=== PATIENT | male | born 1950 | race African-American/Black ===

== ENCOUNTER 2017-07-05 13:58 | Inpatient (IN) | payer OTHER ==
--- NOTE | 2017-07-05 20:17 | HP ---
CIWA Score - CIWA Score Nausea/Vomitin (nausea, no vomiting) Muscle Tremors: 4-Moderate,w/Arms Extend Anxiety: 4-Mod. Anxious/Guarded Agitation: 4-Moderately Restless Paroxysmal Sweats: No Perspiration Orientation: 1-Uncertain about Date Tacttile Disturbances: 0-None Auditory Disturbances: 0-None Visual Disturbances: 0-None Headache: 3-Moderate CIWA-Ar Total Score: 18 Admission ROS S - HPI Chief Complaint: Alcohol withdrawal symptoms Allergies/Adverse Reactions: Allergies Allergy/AdvReac Type Severity Reaction Status Date / Time chlorpromazine AdvReac Severe Difficulty Verified 07/05/17 22:11 [From Thorazine] Breathing divalproex sodium AdvReac Severe Rash Verified 07/05/17 22:11 [From Depakote] History of Present Illness: 66 years old male with a long history of alcohol dependence is seeking admission to detox. Patient has been to previous detox and reports insignificant period of sobriety. He has past medical history of anemia, Hep B, Tuberclosis, BPH and depression. Patient states that he is on risperdal injection every 2 weeks. This is yet to be confirmed by nurse. Referral to Psych. for follow up with medication initiated. He reports 2 prior suicidal attempt by hanging in the bathroom. He denies suicidal ideation at this time. Exam Limitations: No Limitations - Ebola screening Have you traveled outside of the country in the last 21 days: No (N) Have you had contact with anyone from an Ebola affected area: No Have you been sick,other than usual withdrawal symptoms: No Do you have a fever: No - Review of Systems Constitutional: Chills, Loss of Appetite, Malaise, Night Sweats, Changes in sleep EENT: reports: Tearing Respiratory: reports: No Symptoms reported Cardiac: reports: No Symptoms Reported GI: reports: Diarrhea (x 2), Nausea, Poor Appetite, Poor Fluid Intake, Abdominal cramping : reports: No Symptoms Reported Musculoskeletal: reports: Back Pain, Muscle Pain, Muscle Weakness Integumentary: reports: Flushing Neuro: reports: Tingling, Tremors Endocrine: reports: No Symptoms Reported Hematology: reports: No Symptoms Reported, Anemia Psychiatric: reports: Agitated, Anxious Other Systems: Reviewed and Negative Patient History - Patient Medical History Hx Anemia: Yes (On Ferrous Sulfate) Hx Asthma: No Hx Chronic Obstructive Pulmonary Disease (COPD): No Hx Cancer: No Hx Cardiac Disorders: No Hx Congestive Heart Failure: No Hx Hypertension: Yes (Not on meds) Hx Hypercholesterolemia: No Hx Pacemaker: No HX Cerebrovascular Accident: No Hx Seizures: No Hx Dementia: No Hx Diabetes: No Hx Gastrointestinal Disorders: No Hx Liver Disease: Yes (Hepatitis B - not on meds) Hx Genitourinary Disorders: Yes (BPH on Flomax) Hx Sexually Transmitted Disorders: No Hx Renal Disease (ESRD): No Hx Thyroid Disease: No Hx Human Immunodeficiency Virus (HIV): No (Negative 2016) Hx Hepatitis C: No Hx Depression: Yes Hx Suicide Attempt: Yes (Reports 2 suicide attempts, last was ; denies suicidal ideation today) Hx Bipolar Disorder: No Hx Schizophrenia: Yes (Respidal) Other Medical History: TUBERCLOSIS - TREATED WITH INH - Patient Surgical History Past Surgical History: Yes Hx Neurologic Surgery: No Hx Cataract Extraction: No Hx Cardiac Surgery: No Hx Lung Surgery: No Hx Abdominal Surgery: No Hx Appendectomy: No Hx Cholecystectomy: No Hx Genitourinary Surgery: No Hx Orthopedic Surgery: No Other Surgical History: Removal of all teeth from gum infection 2014 Anesthesia Reaction: No - PPD History Previous Implant?: Yes (PPD POSITIVE- INH FOR A YEAR) Implanted On Prior R Admission?: No PPD to be Administered?: No - Reproductive History Patient is a Female of Child Bearing Age (11 -55 yrs old): No (MALE) - Smoking Cessation Smoking history: Former smoker Have you smoked in the past 12 months: No Hx Chewing Tobacco Use: No Initiated information on smoking cessation: No - Substance & Tx. History Hx Alcohol Use: Yes Hx Substance Use: Yes Substance Use Type: Cocaine Hx Substance Use Treatment: Yes ([facility]) - Substances Abused Alcohol Route: Oral Frequency: Daily Amount used: MARGE 45 BEER - 6 PACKS Age of first use: 23 Date of Last Use: 07/05/17 Crack Route: Smoking Frequency: 3-6 times per week Amount used: $500 Age of first use: 30 Date of Last Use: 07/04/17 Family Disease History - Family Disease History Family Disease History: Diabetes: Mother (Bipolar disorder - ), Heart Disease: Mother, CA: Grandparent (liver Ca - ), Respiratory: Mother, Other: Mother, Brother (Schizophrenia) Admission Physical Exam [facility] - Vital Signs Vital Signs: Vital Signs - 24 hr 07/05/17 18:33 Temperature 98.3 F Pulse Rate 66 Respiratory 21 Rate Blood Pressure 153/86 - Physical General Appearance: Yes: Moderate Distress, Tremorous, Irritable, Sweating, Anxious HEENTM: Yes: EOMI, Normal Voice, SHERLEY, Other (No upper and lower teeth) Respiratory: Yes: Lungs Clear, Normal Breath Sounds, No Respiratory Distress Neck: Yes: Supple Breast: Yes: Breast Exam Deferred Cardiology: Yes: Regular Rhythm, Regular Rate, S1, S2 Abdominal: Yes: Protuberent Genitourinary: Yes: Within Normal Limits Back: Yes: Normal Inspection Extremities: Yes: Tremors Neurological: Yes: Alert, Normal Mood/Affect Integumentary: Yes: Dry Lymphatic: Yes: Within Normal Limits - Diagnostic (1) Alcohol dependence with uncomplicated withdrawal Current Visit: Yes Status: Chronic (2) Anemia Current Visit: Yes Status: Chronic Qualifiers: Anemia type: unspecified type Qualified Code(s): D64.9 - Anemia, unspecified (3) Hypertension Current Visit: Yes Status: Chronic Qualifiers: Hypertension type: essential hypertension Qualified Code(s): I10 - Essential (primary) hypertension (4) BPH (benign prostatic hyperplasia) Current Visit: Yes Status: Chronic Qualifiers: Lower urinary tract symptom detail: unspecified (5) Depression Current Visit: Yes Status: Chronic Cleared for Admission [facility] - Detox or Rehab [facility] Level of Care: Medically Managed Detox Regimen/Protocol: Librium [facility] Breath Alcohol Content Breath Alcohol Content: 0 Urine Drug Screen - Results Drug Screen Negative: No Urine Drug Screen Results: CARLEEN-Cocaine
[2017-07-05] MEDS ORDERED: ACETAMINOPHEN 325 MG TABLET (FP) PO PRN (20:52)
[2017-07-05] MEDS ORDERED: guaiFENesin/D-METHORPHAN HB 10 ML UNIT-DOSE CUPS PO PRN (20:52)
[2017-07-05] MEDS ORDERED: MENTHOL/PHENOL 1 EACH UD MM PRN (20:52)
[2017-07-05] MEDS ORDERED: MAGNESIUM CITRATE 300 ML BOTTLE PO PRN (20:52)
[2017-07-05] MEDS ORDERED: MAGNESIUM HYDROX 2400MG/30ML ORAL SUSPENSION 30 ML CUP PO PRN (20:52)
[2017-07-05] MEDS ORDERED: LOPERAMIDE HCL 2 MG CAPSULE PO PRN (20:52)
[2017-07-05] MEDS ORDERED: chlordiazePOXIDE HCL 25 MG CAPSULE PO PRN (20:52)
[2017-07-05] MEDS ORDERED: P-EPHED 60MG/TRIPROLIDI 2.5MG TABLET PO PRN (20:52)
[2017-07-05] MEDS ORDERED: MAG HYDROX/AL HYDROX/SIMETH 30 ML UNIT-DOSE CUP PO PRN (20:52)
[2017-07-06] MEDS: chlordiazePOXIDE HCL 25 MG CAPSULE PO SCH ×5 (00:02→23:45)
[2017-07-06] MEDS: THIAMINE HCL 100 MG TABLET (FP) PO SCH ×2 (00:02→23:45)
[2017-07-06 02:20] LABS: URINE APPEARANCE CLEAR; URINE BILIRUBIN NEGATIVE (NEGATIVE); URINE BLOOD NEGATIVE (NEGATIVE); URINE COLOR YELLOW; URINE GLUCOSE (UA) NEGATIVE (NEGATIVE); URINE KETONE NEGATIVE (NEGATIVE); URINE LEUK ESTERASE TRACE (NEGATIVE); URINE NITRITE NEGATIVE (NEGATIVE); URINE UROBILINOGEN NEGATIVE mg/dL (0.2-1.0)
[2017-07-06 02:35] LABS: URINE PROTEIN 1+ (NEGATIVE)
[2017-07-06 02:38] LABS: EPI CELLS RARE /HPF (FEW); URINE MUCUS FEW
[2017-07-06 11:06] LABS: HEMATOCRIT 36.5 % (35.4-49); HEMOGLOBIN 12.1 GM/dL (11.7-16.9); MCHC 33.2 g/dl (32.0-35.9); MEAN CELL VOLUME 99.3 fl (80-96); MEAN PLT VOLUME 9.2 fl (7.5-11.1); PLATELET COUNT 252 K/MM3 (134-434); RBC 3.68 M/mm3 (4.00-5.60); RDW 15.8 % (11.9-15.9); WHITE BLOOD COUNT 4.3 K/mm3 (4.0-10.0)
[2017-07-06 11:17] LABS: ALBUMIN 3.2 g/dl (3.4-5.0); ANION GAP 10 (8-16); BLOOD UREA NITROGEN 16 mg/dL (7-18); CALCIUM 8.5 mg/dL (8.5-10.1); CHLORIDE 107 mmol/L (98-107); CO2 27 mmol/L (21-32); SODIUM 144 mmol/L (136-145)
[2017-07-06 11:22] LABS: ALK PHOS 71 U/L (45-117); BILIRUBIN,TOTAL 0.3 mg/dL (0.2-1.0); CREATININE 0.9 mg/dL (0.7-1.3); GLUCOSE,RANDOM 108 mg/dL (74-106); SGOT/AST 20 U/L (15-37); SGPT/ALT 24 U/L (12-78); TOT PROT 6.9 g/dl (6.4-8.2)
[2017-07-06] MEDS: FERROUS SO4 325 MG TABLET (FP) PO SCH (11:42)
[2017-07-06] MEDS: PRENATAL VITAMINS W/ FOLIC ACID TABLET (FP) PO SCH (11:43)
--- NOTE | 2017-07-06 12:02 | PN ---
S CIWA - CIWA Score Nausea/Vomitin Muscle Tremors: 3 Anxiety: 3 Agitation: 3 Paroxysmal Sweats: 1-Minimal Palms Moist Orientation: 0-Oriented Tacttile Disturbances: 1-Very Mild Itch/Numbness Auditory Disturbances: 1-Very Mild Visual Disturbances: 0-None Headache: 1-Very Mild CIWA-Ar Total Score: 16 BHS Progress Note (SOAP) Subjective: ALERT,IRRITABLE,ANXIOUS,INTERRUPTED SLEEP,TREMOR Objective: 07/06/17 11:59 Vital Signs Temperature 97.5 F L 07/06/17 11:30 Pulse Rate 53 L 07/06/17 11:30 Respiratory Rate 18 07/06/17 11:30 Blood Pressure 108/72 07/06/17 11:30 O2 Sat by Pulse Oximetry (%) EKG SINUS BRADYCARDIA WITH APC NO CHEST PAIN,NO SOB,NO DIZZINESS 07/06/17 12:00 Laboratory Last Values WBC 4.3 K/mm3 (4.0-10.0) 07/06/17 07:50 RBC 3.68 M/mm3 (4.00-5.60) L 07/06/17 07:50 Hgb 12.1 GM/dL (11.7-16.9) 07/06/17 07:50 Hct 36.5 % (35.4-49) 07/06/17 07:50 MCV 99.3 fl (80-96) H 07/06/17 07:50 MCH 33.0 pg (25.7-33.7) 07/06/17 07:50 MCHC 33.2 g/dl (32.0-35.9) 07/06/17 07:50 RDW 15.8 % (11.9-15.9) 07/06/17 07:50 Plt Count 252 K/MM3 (134-434) 07/06/17 07:50 MPV 9.2 fl (7.5-11.1) 07/06/17 07:50 Sodium 144 mmol/L (136-145) 07/06/17 07:50 Potassium 4.0 mmol/L (3.5-5.1) 07/06/17 07:50 Chloride 107 mmol/L (98-107) 07/06/17 07:50 Carbon Dioxide 27 mmol/L (21-32) 07/06/17 07:50 Anion Gap 10 (8-16) 07/06/17 07:50 BUN 16 mg/dL (7-18) 07/06/17 07:50 Creatinine 0.9 mg/dL (0.7-1.3) 07/06/17 07:50 Creat Clearance w eGFR > 60 (>60) 07/06/17 07:50 Random Glucose 108 mg/dL (74-106) H 07/06/17 07:50 Calcium 8.5 mg/dL (8.5-10.1) 07/06/17 07:50 Total Bilirubin 0.3 mg/dL (0.2-1.0) 07/06/17 07:50 AST 20 U/L (15-37) 07/06/17 07:50 ALT 24 U/L (12-78) 07/06/17 07:50 Alkaline Phosphatase 71 U/L (45-117) 07/06/17 07:50 Total Protein 6.9 g/dl (6.4-8.2) 07/06/17 07:50 Albumin 3.2 g/dl (3.4-5.0) L 07/06/17 07:50 Urine Color Yellow 07/05/17 22:06 Urine Appearance Clear 07/05/17 22:06 Urine pH 6.0 (5.0-8.0) 07/05/17 22:06 Ur Specific [place] 1.023 (1.001-1.035) 07/05/17 22:06 Urine Protein 1+ (NEGATIVE) H 07/05/17 22:06 Urine Glucose (UA) Negative (NEGATIVE) 07/05/17 22:06 Urine Ketones Negative (NEGATIVE) 07/05/17 22:06 Urine Blood Negative (NEGATIVE) 07/05/17 22:06 Urine Nitrite Negative (NEGATIVE) 07/05/17 22:06 Urine Bilirubin Negative (NEGATIVE) 07/05/17 22:06 Urine Urobilinogen Negative mg/dL (0.2-1.0) 07/05/17 22:06 Ur Leukocyte Esterase Trace (NEGATIVE) 07/05/17 22:06 Urine WBC (Auto) 14 /hpf (3-5) 07/05/17 22:06 Urine RBC (Auto) 3 /hpf (0-3) 07/05/17 22:06 Ur Epithelial Cells Rare /HPF (FEW) 07/05/17 22:06 Urine Mucus Few 07/05/17 22:06 Assessment: 07/06/17 12:00 WITHDRAWAL SYMPTOM Plan: CONTINUE DETOX,REPEAT UA
--- NOTE | 2017-07-06 15:51 | CONSULT ---
<Farrukh Altamirano - Last Filed: 07/06/17 16:09> [facility] Psychiatric Consult - Data Date of interview: 07/06/17 Admission source: [facility] Identifying data: First admission to [facility] for this 66 y/o AA male seeking detox treatment on for alcohol and cocaine (crack) dependence.Patient is single without children,domiciled,unemployed and supported on SSI benefits. Substance Abuse History: Confirmed by patient in this interview.Smoking history : Former smoker. Have you smoked in the past 12 months: No. Hx Chewing Tobacco Use: No. Initiated information on smoking cessation: No. - Substance & Tx. History. Hx Alcohol Use: Yes. Hx Substance Use: Yes. Substance Use Type : Cocaine. Hx Substance Use Treatment: Yes ([facility]). - Substances Abused. Alcohol. Route: Oral. Frequency: Daily. Amount used: MARGE 45 BEER - 6 PACKS. Age of first use: 23. Date of Last Use: 07/05/17. Crack. Route: Smoking. Frequency: 3-6 times per week. Amount used: $500. Age of first use: 30. Date of Last Use: 07/04/17 Medical History: Hepatitis B,hypertension,anemia,benign prostatic hyperplasia, obesity and a history on treatment for tuberculosis (INH for one year). Psychiatric History: Discharged,last week,from the psychiatric inpatient service at [facility].Known to [facility] and other facilities.Diagnosed with Schizophrenia.Mr Bella reports current OPD follow[facility]up at [facility].Maintained on risperdal ( injection).Dose unknown and date of last injection remains uncertain (two weeks ago as per self-report).Patient is not a totally reliable historian.He offers a history of suicide attempts (via hanging).As recently as TWO WEEKS AGO (reason of his admission to [facility]). Physical/Sexual Abuse/Trauma History: Not discussed in this interview.Patient declines. Additional Comment: Urine Drug Screen Results: CARLEEN-Cocaine.Noted. Mental Status Exam - Mental Status Exam Alert and Oriented to: Time, Place, Person Cognitive Function: Grossly Intact Patient Appearance: Disheveled (obese,edentulous) Mood: Withdrawn, Irritable Affect: Mood Congruent Patient Behavior: Fatigued, Guarded, Cooperative (marginally cooperative) Speech Pattern: Clear Voice Loudness: Normal Thought Process: Goal Oriented Thought Disorder: Bizarre Hallucinations: Denies Suicidal Ideation: Denies Homicidal Ideation: Denies Insight/Judgement: Poor Sleep: Poorly, Difficulty falling asleep Appetite: Good Muscle strength/Tone: Normal Gait/Station: Normal Psychiatric Findings - Problem List ([place] 1, 2,3) (1) Alcohol dependence with uncomplicated withdrawal Current Visit: Yes Status: Acute (2) Cocaine dependence Current Visit: Yes Status: Acute (3) Schizophrenia Current Visit: Yes Status: Chronic (4) Insomnia Current Visit: Yes Status: Acute - Initial Treatment Plan Initial Treatment Plan: No records for review.Psychoeducation.Sleep hygiene.Detoxification in progress.Contact [facility] for information (dose of IM risperdal and date of last injection).Patient is encouraged to attend groups and activities.Observe progress. <Bunny Oh - Last Filed: 07/09/17 15:08> Psychiatric Findings - Problem List ([place] 1, 2,3) (1) Alcohol dependence Current Visit: Yes Status: Acute (2) Cocaine dependence Current Visit: Yes Status: Acute (3) Schizophrenia Current Visit: Yes Status: Chronic
[2017-07-07] MEDS: chlordiazePOXIDE HCL 25 MG CAPSULE PO SCH ×3 (06:12→17:56)
[2017-07-07] MEDS: TAMSULOSIN HCL 0.4 MG CAP.ER.24H (FP) PO SCH (10:28)
[2017-07-07] MEDS: FERROUS SO4 325 MG TABLET (FP) PO SCH (10:28)
[2017-07-07] MEDS: PRENATAL VITAMINS W/ FOLIC ACID TABLET (FP) PO SCH (10:28)
--- NOTE | 2017-07-07 12:16 | PN ---
S CIWA - CIWA Score Nausea/Vomitin-Mild Nausea/No Vomiting Muscle Tremors: 4-Moderate,w/Arms Extend Anxiety: 3 Agitation: 3 Paroxysmal Sweats: 1-Minimal Palms Moist Orientation: 0-Oriented Tacttile Disturbances: 0-None Auditory Disturbances: 0-None Visual Disturbances: 0-None Headache: 0-None Present CIWA-Ar Total Score: 12 BHS Progress Note (SOAP) Subjective: sweat tremor restlessness anxiety Objective: 07/07/17 12:15 Vital Signs Temperature 97.9 F 07/07/17 10:31 Pulse Rate 52 L 07/07/17 10:31 Respiratory Rate 18 07/07/17 10:31 Blood Pressure 126/79 07/07/17 10:31 O2 Sat by Pulse Oximetry (%) Laboratory Last Values WBC 4.3 K/mm3 (4.0-10.0) 07/06/17 07:50 RBC 3.68 M/mm3 (4.00-5.60) L 07/06/17 07:50 Hgb 12.1 GM/dL (11.7-16.9) 07/06/17 07:50 Hct 36.5 % (35.4-49) 07/06/17 07:50 MCV 99.3 fl (80-96) H 07/06/17 07:50 MCH 33.0 pg (25.7-33.7) 07/06/17 07:50 MCHC 33.2 g/dl (32.0-35.9) 07/06/17 07:50 RDW 15.8 % (11.9-15.9) 07/06/17 07:50 Plt Count 252 K/MM3 (134-434) 07/06/17 07:50 MPV 9.2 fl (7.5-11.1) 07/06/17 07:50 Sodium 144 mmol/L (136-145) 07/06/17 07:50 Potassium 4.0 mmol/L (3.5-5.1) 07/06/17 07:50 Chloride 107 mmol/L (98-107) 07/06/17 07:50 Carbon Dioxide 27 mmol/L (21-32) 07/06/17 07:50 Anion Gap 10 (8-16) 07/06/17 07:50 BUN 16 mg/dL (7-18) 07/06/17 07:50 Creatinine 0.9 mg/dL (0.7-1.3) 07/06/17 07:50 Creat Clearance w eGFR > 60 (>60) 07/06/17 07:50 Random Glucose 108 mg/dL (74-106) H 07/06/17 07:50 Calcium 8.5 mg/dL (8.5-10.1) 07/06/17 07:50 Total Bilirubin 0.3 mg/dL (0.2-1.0) 07/06/17 07:50 AST 20 U/L (15-37) 07/06/17 07:50 ALT 24 U/L (12-78) 07/06/17 07:50 Alkaline Phosphatase 71 U/L (45-117) 07/06/17 07:50 Total Protein 6.9 g/dl (6.4-8.2) 07/06/17 07:50 Albumin 3.2 g/dl (3.4-5.0) L 07/06/17 07:50 Urine Color Yellow 07/05/17 22:06 Urine Appearance Clear 07/05/17 22:06 Urine pH 6.0 (5.0-8.0) 07/05/17 22:06 Ur Specific [place] 1.023 (1.001-1.035) 07/05/17 22:06 Urine Protein 1+ (NEGATIVE) H 07/05/17 22:06 Urine Glucose (UA) Negative (NEGATIVE) 07/05/17 22:06 Urine Ketones Negative (NEGATIVE) 07/05/17 22:06 Urine Blood Negative (NEGATIVE) 07/05/17 22:06 Urine Nitrite Negative (NEGATIVE) 07/05/17 22:06 Urine Bilirubin Negative (NEGATIVE) 07/05/17 22:06 Urine Urobilinogen Negative mg/dL (0.2-1.0) 07/05/17 22:06 Ur Leukocyte Esterase Trace (NEGATIVE) 07/05/17 22:06 Urine WBC (Auto) 14 /hpf (3-5) 07/05/17 22:06 Urine RBC (Auto) 3 /hpf (0-3) 07/05/17 22:06 Ur Epithelial Cells Rare /HPF (FEW) 07/05/17 22:06 Urine Mucus Few 07/05/17 22:06 lab noted Assessment: 07/07/17 12:16 withdrawal sx Plan: continue detox
--- NOTE | 2017-07-07 14:30 | EKG ---
Test Reason : Blood Pressure : / mmHG Vent. Rate : 058 BPM Atrial Rate : 058 BPM P-R Int : 206 ms QRS Dur : 112 ms QT Int : 430 ms P-R-T Axes : 081 -28 011 degrees QTc Int : 422 ms SINUS BRADYCARDIA WITH BLOCKED PREMATURE ATRIAL COMPLEXES OTHERWISE NORMAL ECG NO PREVIOUS ECGS AVAILABLE Confirmed by MD GEOVANI, TERELL ([id number]) on 07/07/2017 2:30:09 PM Referred By: Confirmed By:TERELL OLIVO MD
[2017-07-07] MEDS: chlordiazePOXIDE 5 MG CAPSULE PO SCH (22:59)
[2017-07-07] MEDS: THIAMINE HCL 100 MG TABLET (FP) PO SCH (22:59)
[2017-07-08 01:11] LABS: URINE APPEARANCE SLCLOUDY; URINE BILIRUBIN NEGATIVE (NEGATIVE); URINE BLOOD NEGATIVE (NEGATIVE); URINE COLOR YELLOW; URINE GLUCOSE (UA) NEGATIVE (NEGATIVE); URINE KETONE NEGATIVE (NEGATIVE); URINE NITRITE NEGATIVE (NEGATIVE); URINE PROTEIN NEGATIVE (NEGATIVE); URINE UROBILINOGEN NEGATIVE mg/dL (0.2-1.0)
[2017-07-08 01:13] LABS: URINE LEUK ESTERASE 2+ (NEGATIVE)
[2017-07-08 01:17] LABS: EPI CELLS FEW /HPF (FEW); URINE BACTERIA RARE /hpf (NONE SEEN); URINE MUCUS MODERATE
[2017-07-08] MEDS: chlordiazePOXIDE 5 MG CAPSULE PO SCH ×3 (06:10→17:48)
[2017-07-08] MEDS: TAMSULOSIN HCL 0.4 MG CAP.ER.24H (FP) PO SCH (10:45)
[2017-07-08] MEDS: FERROUS SO4 325 MG TABLET (FP) PO SCH (10:45)
[2017-07-08] MEDS: PRENATAL VITAMINS W/ FOLIC ACID TABLET (FP) PO SCH (10:45)
--- NOTE | 2017-07-08 11:22 | PN ---
S Progress Note (SOAP) Subjective: ALERT,IRRITABLE,ANXIOUS,INTERRUPTED SLEEP Objective: 07/08/17 11:21 Vital Signs Temperature 96.8 F L 07/08/17 10:00 Pulse Rate 54 L 07/08/17 10:00 Respiratory Rate 20 07/08/17 10:00 Blood Pressure 162/83 07/08/17 10:00 O2 Sat by Pulse Oximetry (%) Assessment: 07/08/17 11:22 WITHDRAWAL SYMPTOM Plan: CONTINUE DETOX
[2017-07-08] MEDS: chlordiazePOXIDE HCL 10 MG CAPSULE PO SCH (22:58)
[2017-07-08] MEDS: THIAMINE HCL 100 MG TABLET (FP) PO SCH (22:59)
[2017-07-09] MEDS: chlordiazePOXIDE HCL 10 MG CAPSULE PO SCH ×3 (05:17→18:36)
[2017-07-09] MEDS ORDERED: cloNIDine HCL 0.1 MG TABLET PO ONE (06:55)
[2017-07-09] MEDS: PRENATAL VITAMINS W/ FOLIC ACID TABLET (FP) PO SCH (10:57)
[2017-07-09] MEDS: TAMSULOSIN HCL 0.4 MG CAP.ER.24H (FP) PO SCH (10:58)
[2017-07-09] MEDS: FERROUS SO4 325 MG TABLET (FP) PO SCH (10:58)
--- NOTE | 2017-07-09 12:04 | DS ---
[facility] Detox Discharge Summary Admission Date: 07/05/17 Discharge Date: 07/09/17 - History Present History: Alcohol Dependence Additional Comments: TRANSFER TO REHAB [facility] FOR FURTHER LEVEL OF CARE Pertinent Past History: ANEMIA HYPERTENSION BPH DEPRESSION - Physical Exam Results Vital Signs: Vital Signs Temperature 97.0 F L 07/09/17 06:00 Pulse Rate 50 L 07/09/17 06:00 Respiratory Rate 18 07/09/17 06:00 Blood Pressure 148/97 07/09/17 06:00 O2 Sat by Pulse Oximetry (%) Pertinent Admission Physical Exam Findings: WITHDRAWAL SIGNS AND SYMPTOM - Treatment Hospital Course: Detox Protocol Followed, Detoxed Safely, Responded well, Discharged Condition Good Patient has Accepted a Rehab Referral to: [facility] - Medication Discharge Medications: Ambulatory Orders Ferrous Sulfate [Iron] 325 mg PO DAILY 07/05/17 Tamsulosin HCl [Flomax -] 0.4 mg PO DAILY #14 cap.er.24h 07/07/17 - Diagnosis (1) Alcohol dependence with uncomplicated withdrawal Current Visit: Yes Status: Acute (2) Anemia Current Visit: Yes Status: Chronic Qualifiers: Anemia type: unspecified type Qualified Code(s): D64.9 - Anemia, unspecified (3) BPH (benign prostatic hyperplasia) Current Visit: Yes Status: Chronic Qualifiers: Lower urinary tract symptom detail: unspecified (4) Depression Current Visit: Yes Status: Chronic (5) Hypertension Current Visit: Yes Status: Chronic Qualifiers: Hypertension type: essential hypertension Qualified Code(s): I10 - Essential (primary) hypertension - AMA Did Patient Leave Against Medical Advice: No
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
[2017-07-09 14:59] VITALS: BMI 43.4
--- NOTE | 2017-07-09 15:44 | HP ---
[facility] Rehab Assess/Revision - Admission History Admitted to Rehab from: [facility] Date of Admission to Rehab: 07/09/2017 - Vital signs Vital Signs: Vital Signs Period Temp Pulse Resp BP Sys/Trevino Pulse Ox Last 24 Hr 97.0 F-98.4 F 50-60 18-20 131-148/72-97 - Findings Detox History & Physical reviewed: Yes Concur with findings: Yes Inpatient Rehab Admission - Initial Determination Are CD services needed?: Yes Free of communicable disease: Yes - Rehab Admission Criteria Comorbidities: Yes Patient is meeting Inpatient Rehab admission criteria:: Yes
[2017-07-09] MEDS ORDERED: traZODone HCL 50 MG TABLET (FP) PO ONE (19:14)
--- NOTE | 2017-07-09 19:34 | PN ---
[facility] Progress Note Note: Called by nursing staff to report that patient wanted to leave and said he did not care about his life. Grinding Wheel Facer asked to talk to patient. Patient was asked about what he meant by not caring about his life. He told typewriter assembly and parts inspector that he meant exactly he said. Grinding Wheel Facer asked him if he meant that he wanted to kill himself. He asked typewriter assembly and parts inspector what would he do if it was what he meant. Grinding Wheel Facer asked patient to get nursing staff on the phone. Nursing staff was instructed to place patient on 1:1 and if patient should present to be a problem on the unit to call 911 in order to refer him to ED for evaluation Patient was transferred to the unit this afternoon from [facility] for inpatient rehabilitation. Reportedly he has history of Schizophrenia since 1975 with multiple psychiatric inpatient hospitalizations to various facilities including [facility], [facility], [facility] [facility] and [facility]. He reported recent hospitalization 2 weeks ago for suicidal attempt by trying to jump out of a window. Reportedly he had a previous suicidal attempt by trying to hang himself in the past. His psychiatric care is provided by [facility] in [facility] and he is prescribed Risperdal Consta(dose & last administered unknown)
[2017-07-09] MEDS: THIAMINE HCL 100 MG TABLET (FP) PO SCH (21:24)
[2017-07-10] MEDS: TAMSULOSIN HCL 0.4 MG CAP.ER.24H (FP) PO SCH (10:35)
[2017-07-10] MEDS: FERROUS SO4 325 MG TABLET (FP) PO SCH (10:35)
[2017-07-10] MEDS: PRENATAL VITAMINS W/ FOLIC ACID TABLET (FP) PO SCH (10:35)
[2017-07-10] MEDS ORDERED: RISPERIDONE MICROSPHERES 25 MG/2 ML VIAL IM ONE (11:51)
[2017-07-10] MEDS ORDERED: QUEtiapine FUMARATE 50 MG TABLET PO PRN (13:34)
[2017-07-10] MEDS: LITHIUM CARBONATE 300 MG CAPSULE (FP) PO SCH ×2 (14:42→21:19)
[2017-07-10] MEDS: QUEtiapine FUMARATE 200 MG TABLET PO SCH (21:19)
[2017-07-10] MEDS: THIAMINE HCL 100 MG TABLET (FP) PO SCH (21:19)
[2017-07-10] MEDS: IBUPROFEN 400 MG TABLET (FP) PO PRN (21:20)
--- NOTE | 2017-07-11 09:39 | PN ---
Psychiatric Progress Note Vital Signs: Vital Signs Period Temp Pulse Resp BP Sys/Trevino Pulse Ox Last 24 Hr 97.7 F 58 18-20 149/81 Date of Session: 07/11/17 Chief Complaint:: Follow up 1:1 observation HPI: Patient addressing Alcohol and Cocaine Dependence, Schizophrenia, Substance -Induced Mood Disorder and Substance-induced Sleep Disorder ROS: Anemia, HTN, Hep B, BPH, PPD+ treated Current Medications: Active Medications Generic Name Dose Route Start Last Admin Trade Name Freq PRN Reason Stop Dose Admin Acetaminophen 650 mg 07/05/17 20:52 Tylenol - PO Q4H PRN FEVER Al Hydroxide/Mg Hydroxide 30 ml 07/05/17 20:52 Mylanta Oral Suspension - PO Q6H PRN DYSPEPSIA Eucalyptus/Menthol/Phenol/Sorbitol 1 each 07/05/17 20:52 Cepastat Lozenge - MM Q4H PRN SORE THROAT Ferrous Sulfate 325 mg 07/06/17 10:00 07/10/17 10:35 Feosol - PO 325 mg DAILY ALEYDA Administration Guaifenesin 10 ml 07/05/17 20:52 Robitussin Dm - PO Q6H PRN COUGH Ibuprofen 400 mg 07/05/17 20:52 07/10/17 21:20 Motrin - PO 400 mg Q6H PRN Administration PAIN LEVEL 4-6 [place] Carbonate 600 mg 07/10/17 14:05 07/10/17 21:19 Eskalith - PO 600 mg BID ALEYDA Administration Loperamide HCl 4 mg 07/05/17 20:52 Imodium - PO Q6H PRN DIARRHEA Magnesium Citrate 300 ml 07/05/17 20:52 Citroma - PO Q48H PRN CONSTIPATION Magnesium Hydroxide 30 ml 07/05/17 20:52 Milk Of Magnesia - PO DAILY PRN CONSTIPATION Multivit/Folic Acid/Iron 1 tab 07/06/17 10:00 07/10/17 10:35 Vitamins (Sjr) - PO 1 tab DAILY ALEYDA Administration Pseudoephedrine/Triprolidine 1 combo 07/05/17 20:52 Actifed - PO TID PRN NASAL CONGESTION Quetiapine Fumarate 200 mg 07/10/17 22:00 07/10/17 21:19 Seroquel - PO 200 mg HS ALEYDA Administration Quetiapine Fumarate 50 mg 07/10/17 13:34 Seroquel - PO Q6H PRN ANXIETY Tamsulosin HCl 0.4 mg 07/07/17 08:30 07/10/17 10:35 Flomax - PO 0.4 mg DAILY@0830 ALEYDA Administration Thiamine HCl 100 mg 07/05/17 22:00 07/10/17 21:19 Vitamin B1 - PO 100 mg HS LAEYDA Administration Current Side Effect: No Lab tests ordered: Yes ([place] serum level) Lab tests reviewed: Yes (CBC: RBC 3.68L, MCV 99.3H; Chemistry: random glucose 108H) Provider note:: Patient seen this morning at bedside. Reports that he slept well last night.However, he reports being drowsy and sleepy and he looks sedated. continues to report not feeling suicidal. He is currently on [place] 600 mg po BID, Seroquel 200 mg po HS and Seroquel 50 mg po Q 6hrs prn Total face to face time:: 25 Mental Status Exam - Mental Status Exam Alert and Oriented to: Time, Place, Person Cognitive Function: Fair Patient Appearance: Well Groomed Mood: Hopeful, Euthymic Affect: Appropriate Patient Behavior: Sedated, Cooperative Speech Pattern: Clear Voice Loudness: Normal Thought Process: Intact, Goal Oriented Thought Disorder: Not Present Hallucinations: Denies Suicidal Ideation: Denies Homicidal Ideation: Denies Insight/Judgement: Fair Sleep: Well Appetite: Good Muscle strength/Tone: Normal Gait/Station: Normal Psychiatric Treatment Plan - Problem List (7) Anemia Qualifiers: Anemia type: unspecified type Qualified Code(s): D64.9 - Anemia, unspecified (8) BPH (benign prostatic hyperplasia) Qualifiers: Lower urinary tract symptom detail: unspecified (9) Hypertension Qualifiers: Hypertension type: essential hypertension Qualified Code(s): I10 - Essential (primary) hypertension (11) PPD positive, treated Initial treatment plan: 1) [place] 1:1 observation as patient is no longer reported SI. 2) Monitor progress
[2017-07-11] MEDS: TAMSULOSIN HCL 0.4 MG CAP.ER.24H (FP) PO SCH (10:32)
[2017-07-11] MEDS: LITHIUM CARBONATE 300 MG CAPSULE (FP) PO SCH ×2 (10:32→21:54)
[2017-07-11] MEDS: FERROUS SO4 325 MG TABLET (FP) PO SCH (10:32)
[2017-07-11] MEDS: PRENATAL VITAMINS W/ FOLIC ACID TABLET (FP) PO SCH (10:32)
[2017-07-11] MEDS: QUEtiapine FUMARATE 200 MG TABLET PO SCH (21:54)
[2017-07-11] MEDS: THIAMINE HCL 100 MG TABLET (FP) PO SCH (21:54)
[2017-07-12 07:17] VITALS: BP 141/83; PULSE 50; TEMP 97.8
[2017-07-12] MEDS: PRENATAL VITAMINS W/ FOLIC ACID TABLET (FP) PO SCH (09:58)
[2017-07-12] MEDS: TAMSULOSIN HCL 0.4 MG CAP.ER.24H (FP) PO SCH (09:58)
[2017-07-12] MEDS: LITHIUM CARBONATE 300 MG CAPSULE (FP) PO SCH ×2 (09:58→21:35)
[2017-07-12] MEDS: FERROUS SO4 325 MG TABLET (FP) PO SCH (12:56)
[2017-07-12] MEDS: THIAMINE HCL 100 MG TABLET (FP) PO SCH (21:35)
[2017-07-12] MEDS: QUEtiapine FUMARATE 200 MG TABLET PO SCH (21:35)
[2017-07-13] MEDS: TAMSULOSIN HCL 0.4 MG CAP.ER.24H (FP) PO SCH (07:53)
[2017-07-13] MEDS: FERROUS SO4 325 MG TABLET (FP) PO SCH (12:32)
[2017-07-13] MEDS: LITHIUM CARBONATE 300 MG CAPSULE (FP) PO SCH (12:32)
[2017-07-13] MEDS: PRENATAL VITAMINS W/ FOLIC ACID TABLET (FP) PO SCH (12:32)
[2017-07-13] MEDS: IBUPROFEN 400 MG TABLET (FP) PO PRN (13:40)
--- NOTE | 2017-07-13 14:32 | PN ---
[facility] Progress Note Note: Patient reports buildup of ear wax in left ear, which is is causing his his hearing to be diminished. Patient reports history of using coffee stirrers to clean ear himself. Visual inspection of Left ear with otoscope reveals significant earwax buildup. Debrox drops ordered. Patient advised to NOT use any objects to be placed in ears to clean ears and to follow-up with [facility] at [facility]) after discharge from Rehab for further medical evaluation. Will continue to monitor over the new few days for effect. Krista Gu NP
[2017-07-13] MEDS ORDERED: CARBAMIDE PEROXIDE 6.5% OTIC 15 ML BOTTLE AS SCH (22:00)
== END 2017-07-13 19:15 | disposition left against medical advice (07) | DRG 894 ==
LOC: YASAS 13:58 → Y6N 19:58 → Y3W 07-09 12:54
PROVIDERS: ADMIT Internal Medicine; ATTEND Psychiatry & Neurology Psychiatry
PROC: HZ2ZZZZ Detoxification Services for Substance Abuse Treatment (ICD-10-PCS; principal; 2017-07-05)
PROC: HZ42ZZZ Group Counseling for Substance Abuse Treatment, Cognitive-Behavioral (ICD-10-PCS; 2017-07-09)
DX: F10.230 Alcohol dependence with withdrawal, uncomplicated (principal); F14.20 Cocaine dependence, uncomplicated; F19.282 Other psychoactive substance dependence with psychoactive substance-induced sleep disorder; B18.1 Chronic viral hepatitis B without delta-agent; Z68.41 Body mass index [BMI] 40.0-44.9, adult; F25.9 Schizoaffective disorder, unspecified; F20.9 Schizophrenia, unspecified; F19.24 Other psychoactive substance dependence with psychoactive substance-induced mood disorder; R00.1 Bradycardia, unspecified; G47.00 Insomnia, unspecified; D64.9 Anemia, unspecified; N40.0 Benign prostatic hyperplasia without lower urinary tract symptoms; I10 Essential (primary) hypertension; R76.11 Nonspecific reaction to tuberculin skin test without active tuberculosis; H61.23 Impacted cerumen, bilateral; E66.9 Obesity, unspecified; Z86.11 Personal history of tuberculosis; Z87.891 Personal history of nicotine dependence; Z91.5 Personal history of self-harm; Z59.0 Homelessness
CPT/HCPCS: 36415; 71046-TC-FY; 80053; 80178; 81003; 81015; 85027; 86593; 93005; 93010; J0735

== ENCOUNTER 2021-12-13 16:26 | Inpatient (IN) | payer OTHER ==
[2021-12-13 18:33] VITALS: BMI 39.7
[2021-12-13] MEDS ORDERED: DICYCLOMINE HCL 10 MG CAPSULE PO PRN (19:32)
[2021-12-13] MEDS ORDERED: METHOCARBAMOL 500 MG TABLET PO PRN (19:32)
[2021-12-13] MEDS ORDERED: hydrOXYzine PAMOATE 25 MG CAPSULE (FP) PO PRN (19:32)
[2021-12-13] MEDS ORDERED: IBUPROFEN 600 MG TABLET (FP) PO PRN (19:32)
[2021-12-13] MEDS ORDERED: NICOTINE POLACRILEX 2 MG GUM BUC PRN (19:32)
[2021-12-13] MEDS ORDERED: IBUPROFEN 400 MG TABLET (FP) PO PRN (19:32)
[2021-12-13] MEDS ORDERED: LORazepam 1 MG TABLET PO PRN (19:32)
[2021-12-13] MEDS ORDERED: BISMUTH SUBSALICYLATE 524 MG/30 ML PO PRN (19:32)
[2021-12-13] MEDS ORDERED: LOPERAMIDE HCL 2 MG CAPSULE PO PRN (19:32)
[2021-12-13] MEDS ORDERED: ACETAMINOPHEN 325 MG TABLET (FP) PO PRN ×2 (19:32)
[2021-12-13] MEDS ORDERED: MAGNESIUM CITRATE 300 ML BOTTLE PO PRN (19:32)
[2021-12-13] MEDS ORDERED: MAGNESIUM HYDROX 2400MG/30ML ORAL SUSPENSION 30 ML CUP PO PRN (19:32)
[2021-12-13] MEDS ORDERED: ONDANSETRON *ODT* 4 MG TABLET SL PRN (19:32)
[2021-12-13] MEDS ORDERED: BENZOCAINE/MENTHOL (CHLORASEPTIC ) LOZENGE MM PRN (19:32)
[2021-12-13] MEDS ORDERED: MAG HYDROX/AL HYDROX/SIMETH 30 ML UNIT-DOSE CUP PO PRN (19:32)
[2021-12-13] MEDS: MELATONIN 5 MG TABLETS PO SCH (22:41)
[2021-12-13] MEDS: THIAMINE HCL 100 MG TABLET (FP) PO SCH (22:42)
[2021-12-13] MEDS: LORazepam 1 MG TABLET PO SCH (22:50)
[2021-12-13] MEDS ORDERED: LORazepam 2 MG TABLET PO SCH (23:00)
[2021-12-14] MEDS: LORazepam 1 MG TABLET PO SCH ×4 (07:00→23:01)
[2021-12-14] MEDS: PRENATAL VITAMINS W/ FOLIC ACID TABLET (FP) PO SCH (11:32)
[2021-12-14 11:55] LABS: HEMATOCRIT 30.7 % (35.4-49); HEMOGLOBIN 9.8 GM/dL (11.7-16.9); MCH 29.5 pg (25.7-33.7); MCHC 31.9 g/dl (32.0-35.9); MEAN CELL VOLUME 92.5 fl (80-96); MEAN PLT VOLUME 9.4 fl (7.5-11.1); PLATELET COUNT 519 10^3/uL (134-434); RBC 3.32 M/mm3 (4.00-5.60); RDW 16.8 % (11.9-15.9); WHITE BLOOD COUNT 4.5 K/mm3 (4.0-10.0)
[2021-12-14 12:21] LABS: BLOOD UREA NITROGEN 17.9 mg/dL (7-18); CALCIUM 8.7 mg/dL (8.5-10.1)
[2021-12-14 12:24] LABS: CREATININE 0.9 mg/dL (0.55-1.3)
[2021-12-14 12:26] LABS: BILIRUBIN,TOTAL 0.5 mg/dL (0.2-1); TOT PROT 6.6 g/dl (6.4-8.2)
[2021-12-14] MEDS: FERROUS SO4 325 MG TABLET (FP) PO SCH (16:09)
[2021-12-14] MEDS: THIAMINE HCL 100 MG TABLET (FP) PO SCH (23:02)
[2021-12-14] MEDS: TAMSULOSIN HCL 0.4 MG CAP PO SCH (23:02)
[2021-12-14] MEDS: MELATONIN 5 MG TABLETS PO SCH (23:02)
[2021-12-15] MEDS: LORazepam 1 MG TABLET PO SCH ×4 (06:48→22:49)
[2021-12-15] MEDS: PRENATAL VITAMINS W/ FOLIC ACID TABLET (FP) PO SCH (10:57)
[2021-12-15] MEDS: FERROUS SO4 325 MG TABLET (FP) PO SCH (10:57)
[2021-12-15] MEDS: THIAMINE HCL 100 MG TABLET (FP) PO SCH (22:49)
[2021-12-15] MEDS: TAMSULOSIN HCL 0.4 MG CAP PO SCH (22:49)
[2021-12-15] MEDS: MELATONIN 5 MG TABLETS PO SCH (22:50)
[2021-12-16] MEDS ORDERED: LORazepam 0.5 MG TABLET PO PRN
[2021-12-16] MEDS: LORazepam 0.5 MG TABLET PO SCH ×4 (06:59→23:33)
[2021-12-16] MEDS: PRENATAL VITAMINS W/ FOLIC ACID TABLET (FP) PO SCH (10:02)
[2021-12-16] MEDS: FERROUS SO4 325 MG TABLET (FP) PO SCH (10:02)
[2021-12-16] MEDS: MELATONIN 5 MG TABLETS PO SCH (23:33)
[2021-12-16] MEDS: TAMSULOSIN HCL 0.4 MG CAP PO SCH (23:33)
[2021-12-16] MEDS: THIAMINE HCL 100 MG TABLET (FP) PO SCH (23:33)
[2021-12-17] MEDS ORDERED: LORazepam 0.5 MG TABLET PO ONE (05:00)
[2021-12-17] MEDS: FERROUS SO4 325 MG TABLET (FP) PO SCH (10:08)
[2021-12-17] MEDS: PRENATAL VITAMINS W/ FOLIC ACID TABLET (FP) PO SCH (10:08)
[2021-12-17] MEDS: TAMSULOSIN HCL 0.4 MG CAP PO SCH (22:27)
[2021-12-17] MEDS: THIAMINE HCL 100 MG TABLET (FP) PO SCH (22:28)
[2021-12-17] MEDS: MELATONIN 5 MG TABLETS PO SCH (22:28)
[2021-12-18] MEDS: FERROUS SO4 325 MG TABLET (FP) PO SCH (11:10)
[2021-12-18] MEDS: PRENATAL VITAMINS W/ FOLIC ACID TABLET (FP) PO SCH (11:11)
[2021-12-18] MEDS: TAMSULOSIN HCL 0.4 MG CAP PO SCH (23:03)
[2021-12-18] MEDS: MELATONIN 5 MG TABLETS PO SCH (23:03)
[2021-12-18] MEDS: THIAMINE HCL 100 MG TABLET (FP) PO SCH (23:03)
[2021-12-19 06:55] VITALS: RESP 18
[2021-12-19 08:52] VITALS: BP 111/67; PULSE 109; TEMP 96.9
[2021-12-19] MEDS: FERROUS SO4 325 MG TABLET (FP) PO SCH (10:52)
[2021-12-19] MEDS: PRENATAL VITAMINS W/ FOLIC ACID TABLET (FP) PO SCH (10:52)
== END 2021-12-19 11:32 | disposition home or self-care (01) | DRG 896 ==
LOC: YASAS 16:26 → Y6N 21:34 → Y3N 23:50
PROVIDERS: ADMIT Allergy & Immunology; ATTEND Allergy & Immunology
PROC: HZ2ZZZZ Detoxification Services for Substance Abuse Treatment (ICD-10-PCS; principal; 2021-12-13)
DX: F10.230 Alcohol dependence with withdrawal, uncomplicated (principal); U07.1 COVID-19; F14.20 Cocaine dependence, uncomplicated; F17.210 Nicotine dependence, cigarettes, uncomplicated; F31.9 Bipolar disorder, unspecified; F25.9 Schizoaffective disorder, unspecified; F19.24 Other psychoactive substance dependence with psychoactive substance-induced mood disorder; D50.8 Other iron deficiency anemias; G47.00 Insomnia, unspecified; I10 Essential (primary) hypertension; K21.9 Gastro-esophageal reflux disease without esophagitis; L40.9 Psoriasis, unspecified; N40.0 Benign prostatic hyperplasia without lower urinary tract symptoms; Z86.19 Personal history of other infectious and parasitic diseases; Z88.8 Allergy status to other drugs, medicaments and biological substances; Z91.19 Patient's noncompliance with other medical treatment and regimen
CPT/HCPCS: 36415; 80053; 85027; 86780; 87811; 93005; 93010; C9803-CS; U0003; U0005